=== PATIENT | male | born 1965 | race Caucasian/White ===

== ENCOUNTER 2018-10-09 15:44 | Emergency (ER) | payer MEDICAID ==
[~2018-10-09] VITALS: Ht 175.3 cm; Wt 79.5 kg
[2018-10-09] MEDS ORDERED: NAPR250T4 PO (15:53)
[2018-10-09] MEDS ORDERED: LITH8SOL6 PO (15:53)
[2018-10-09] MEDS ORDERED: FOLI0.4T4 PO (15:53)
[2018-10-09] MEDS ORDERED: METH2.5 PO (15:53)
[2018-10-09] MEDS ORDERED: TAMS0.4C32 PO (15:53)
[2018-10-09] MEDS ORDERED: VENL25TA47 PO (15:53)
[2018-10-09] MEDS ORDERED: PRED1 PO (15:53)
[2018-10-09] MEDS ORDERED: QUET25TA PO (15:53)
[2018-10-09] MEDS ORDERED: GABA-529 PO (16:01)
[2018-10-09] MEDS ORDERED: FOLI1 PO (16:01)
[2018-10-09] MEDS ORDERED: QUET200T PO (16:01)
[2018-10-09] MEDS ORDERED: LITH300C3 PO (16:01)
[2018-10-09] MEDS ORDERED: HYDR200T4 PO (16:01)
[2018-10-09 18:49] VITALS: BP 133/78
== END 2018-10-09 19:06 | disposition home or self-care (01) ==
LOC: EMS 15:46
DX: F10.239 Alcohol dependence with withdrawal, unspecified (principal); Y90.9 Presence of alcohol in blood, level not specified; F31.9 Bipolar disorder, unspecified; Z76.0 Encounter for issue of repeat prescription; F17.210 Nicotine dependence, cigarettes, uncomplicated; F41.9 Anxiety disorder, unspecified; K21.9 Gastro-esophageal reflux disease without esophagitis; Z79.899 Other long term (current) drug therapy
CPT/HCPCS: 99406

== ENCOUNTER 2018-10-24 10:24 | Emergency (ER) | payer MEDICAID ==
[~2018-10-24] VITALS: Ht 175.3 cm; Wt 77.3 kg
[~2018-10-24 10:24] MED LIST: FOLI1 PO; GABA-529 PO; HYDR200T4 PO; LITH300C3 PO; METH2.5 PO; NAPR250T4 PO; PRED1 PO; QUET200T PO; TAMS0.4C32 PO; VENL25TA47 PO
[2018-10-24 14:20] VITALS: BP 157/88
== END 2018-10-24 14:23 | disposition home or self-care (01) ==
LOC: EMS 10:24
DX: F41.9 Anxiety disorder, unspecified (principal); F31.9 Bipolar disorder, unspecified; K21.9 Gastro-esophageal reflux disease without esophagitis; F17.210 Nicotine dependence, cigarettes, uncomplicated; Z76.0 Encounter for issue of repeat prescription

== ENCOUNTER 2019-01-09 15:08 | Inpatient (IN) | payer MEDICAID ==
[~2019-01-09] VITALS: Ht 175.3 cm; Wt 66.9 kg
[2019-01-09] MEDS ORDERED: METH2.5T6 PO (18:18)
[2019-01-09] MEDS ORDERED: folic acid PO (18:18)
[2019-01-09] MEDS ORDERED: LITH300C3 PO (18:18)
[2019-01-09] MEDS ORDERED: Hydroxychloroquine PO (18:18)
[2019-01-09] MEDS ORDERED: Tamsulosin PO (18:18)
[2019-01-09] MEDS ORDERED: Prednisone PO (18:18)
[2019-01-09] MEDS ORDERED: QUET300T2 PO (18:18)
[2019-01-09] MEDS ORDERED: LORazepam 2 MG TABLET PO PRN (19:00)
[2019-01-09] MEDS ORDERED: HALOPERIDOL 5 MG TABLET PO PRN (19:00)
[2019-01-09 19:12] VITALS: BP 121/67
[2019-01-10 06:53] VITALS: BP 122/80
[2019-01-10 07:51] LABS: BASOPHILS % (AUTO) 0.5 % (0.0-2.0); EOSINOPHILS % (AUTO) 1.2 % (1.0-6.0); HEMATOCRIT 37.4 % (41-53); LYMPHOCYTES # (AUTO) 2.2 K/uL (1.0-4.8); LYMPHOCYTES % (AUTO) 25.6 % (22.0-44.0); MEAN CORPUSCULAR HEMOGLOBIN 31.8 pg (26.0-34.0); MEAN CORPUSCULAR HGB CONC 34.8 G/dL (31.0-37.0); MEAN CORPUSCULAR VOLUME 91 fL (80-100); MONOCYTES # (AUTO) 0.7 K/uL (0.1-1.0); MONOCYTES % (AUTO) 8.4 % (2.0-9.0); NEUTROPHILS # (AUTO) 5.6 K/uL (1.8-7.7); NEUTROPHILS % (AUTO) 64.3 % (40.0-70.0); PLATELET COUNT (AUTO) 263 K/uL (150-450); RED BLOOD CELL COUNT(AUTO) 4.09 MIL/uL (4.50-5.90); RED CELL DISTRIBUTION WIDTH 15.1 % (11.5-14.5)
[2019-01-10 08:00] LABS: LITHIUM < 0.20 mmol/L (0.60-1.20)
[2019-01-10 08:33] LABS: ALANINE AMINOTRANSFERASE 20 U/L (12-78); ALBUMIN 3.1 g/dL (3.4-5.0); ALKALINE PHOSPHATASE 88 U/L (46-116); ANION GAP 8 mmol/L (8-16); ASPARTATE AMINOTRANSFERASE 23 U/L (15-37); BILIRUBIN,TOTAL 0.6 mg/dL (0.1-1.0); CALCIUM, TOTAL 8.8 mg/dL (8.8-10.5); CARBON DIOXIDE 27 mmol/L (22-29); CHLORIDE 103 mmol/L (98-107); CHOL/HDL RATIO 4.2 (4.2-7.3); CHOLESTEROL 165 mg/dL (131-200); CREATININE 0.87 mg/dL (0.60-1.30); GLOMERULAR FILTR. RATE CALC > 60 mL/min (>60); GLUCOSE,RANDOM 90 mg/dL (70-110); HDL CHOLESTEROL 39 mg/dL (40-60); LDL CHOL (CALC.) 106 mg/dL (0-130); POTASSIUM 4.7 mmol/L (3.5-5.1); SODIUM SERUM 138 mmol/L (136-145); THYROID STIMULATING HORMONE 0.99 uIU/mL (0.36-3.74); TOTAL PROTEIN, SERUM 6.3 g/dL (6.4-8.2); TRIGLYCERIDES 100 mg/dL (15-150); UREA NITROGEN, BLOOD 11 mg/dL (7-18)
[2019-01-10 08:39] VITALS: BP 108/69
[2019-01-10 08:41] LABS: HEMOGLOBIN A1C 5.7 % (4.5-6.2)
[2019-01-10] MEDS ORDERED: LOPERAMIDE HCL 2 MG CAPSULE PO PRN (12:30)
[2019-01-10] MEDS ORDERED: MAG HYDROX/AL HYDROX/SIMETH ES 30 ML SUSPENSION UDCUP PO PRN (12:30)
[2019-01-10] MEDS ORDERED: ALBUTEROL SULFATE HFA 90 MCG/PUFF 8 GM INHALER IH PRN (12:30)
[2019-01-10] MEDS ORDERED: PETROLATUM,WHITE 71 GM JELLY TP PRN (12:30)
[2019-01-10] MEDS ORDERED: ACETAMINOPHEN 325 MG TABLET PO PRN (12:30)
[2019-01-10] MEDS ORDERED: GuaiFENesin/D-METHORPHAN [SUGAR-FREE] 200-20MG/10 ML SYRUP UDCUP PO PRN (12:30)
[2019-01-10] MEDS ORDERED: ONDANSETRON HCL 4 MG TABLET PO PRN (12:30)
[2019-01-10] MEDS ORDERED: CloNIDine HCL 0.1 MG TABLET PO PRN (12:30)
[2019-01-10] MEDS ORDERED: NICOTINE 14 MG/24 HOUR PATCH TD PRN (12:30)
[2019-01-10 17:29] VITALS: BP 112/66
[2019-01-10] MEDS: LITHIUM CARBONATE 600 MG CAPSULE PO SCH (17:32)
[2019-01-10] MEDS: QUEtiapine FUMARATE 300 MG TABLET PO SCH (20:05)
[2019-01-10] MEDS ORDERED: TAMSULOSIN HCL 0.4 MG CAPSULE PO SCH (21:00)
[2019-01-11 00:49] VITALS: BP 104/64
[2019-01-11 08:30] VITALS: BP_SYST 111
[2019-01-11] MEDS ORDERED: METHOTREXATE SODIUM 2.5 MG TABLET PO SCH (09:00)
[2019-01-11] MEDS: FOLIC ACID 1 MG TABLET PO SCH (09:13)
[2019-01-11] MEDS: LITHIUM CARBONATE 600 MG CAPSULE PO SCH ×2 (09:14→17:27)
[2019-01-11] MEDS: QUEtiapine FUMARATE 200 MG TABLET PO SCH (09:14)
[2019-01-11] MEDS: SERTRALINE HCL 50 MG TABLET PO SCH (09:14)
[2019-01-11] MEDS: METHOTREXATE SODIUM 2.5 MG TABLET PO SCH (09:15)
[2019-01-11] MEDS: HYDROXYCHLOROQUINE SULFATE 200 MG TABLET PO SCH (09:15)
[2019-01-11 16:36] VITALS: BP 103/61
[2019-01-11] MEDS: TAMSULOSIN HCL 0.4 MG CAPSULE PO SCH (20:17)
[2019-01-11] MEDS: QUEtiapine FUMARATE 300 MG TABLET PO SCH (20:17)
[2019-01-12 00:54] VITALS: BP 112/60
[2019-01-12 08:27] VITALS: BP 111/63
[2019-01-12] MEDS: QUEtiapine FUMARATE 200 MG TABLET PO SCH (09:17)
[2019-01-12] MEDS: HYDROXYCHLOROQUINE SULFATE 200 MG TABLET PO SCH (09:17)
[2019-01-12] MEDS: SERTRALINE HCL 50 MG TABLET PO SCH (09:17)
[2019-01-12] MEDS: LITHIUM CARBONATE 600 MG CAPSULE PO SCH ×2 (09:17→17:13)
[2019-01-12] MEDS: FOLIC ACID 1 MG TABLET PO SCH (09:17)
[2019-01-12 16:00] VITALS: BP 121/63
[2019-01-12] MEDS: TAMSULOSIN HCL 0.4 MG CAPSULE PO SCH (20:38)
[2019-01-12] MEDS: QUEtiapine FUMARATE 300 MG TABLET PO SCH (20:38)
[2019-01-13 00:55] VITALS: BP 113/71
[2019-01-13 08:16] VITALS: BP 120/64
[2019-01-13] MEDS: QUEtiapine FUMARATE 200 MG TABLET PO SCH (08:53)
[2019-01-13] MEDS: LITHIUM CARBONATE 600 MG CAPSULE PO SCH ×2 (08:54→16:53)
[2019-01-13] MEDS: HYDROXYCHLOROQUINE SULFATE 200 MG TABLET PO SCH (08:54)
[2019-01-13] MEDS: FOLIC ACID 1 MG TABLET PO SCH (08:54)
[2019-01-13] MEDS: SERTRALINE HCL 50 MG TABLET PO SCH (09:05)
[2019-01-13 16:35] VITALS: BP 115/66
[2019-01-13] MEDS: QUEtiapine FUMARATE 300 MG TABLET PO SCH (20:32)
[2019-01-13] MEDS: TAMSULOSIN HCL 0.4 MG CAPSULE PO SCH (20:33)
[2019-01-14 05:29] VITALS: BP 116/62
[2019-01-14 08:40] VITALS: BP 113/76
[2019-01-14] MEDS: LITHIUM CARBONATE 600 MG CAPSULE PO SCH ×2 (08:53→17:09)
[2019-01-14] MEDS: FOLIC ACID 1 MG TABLET PO SCH (08:56)
[2019-01-14] MEDS: QUEtiapine FUMARATE 200 MG TABLET PO SCH (08:56)
[2019-01-14] MEDS: HYDROXYCHLOROQUINE SULFATE 200 MG TABLET PO SCH (08:56)
[2019-01-14] MEDS ORDERED: SERTRALINE HCL 100 MG TABLET PO SCH (09:00)
[2019-01-14 12:20] VITALS: BP 118/65
[2019-01-14] MEDS: IBUPROFEN 400 MG TABLET PO PRN (12:22)
[2019-01-14 16:44] VITALS: BP 110/63
[2019-01-14] MEDS: QUEtiapine FUMARATE 300 MG TABLET PO SCH (21:23)
[2019-01-14] MEDS: TAMSULOSIN HCL 0.4 MG CAPSULE PO SCH (21:23)
[2019-01-15 01:44] VITALS: BP 118/70
[2019-01-15 08:29] VITALS: BP 108/76
[2019-01-15] MEDS ORDERED: SERTRALINE HCL 100 MG TABLET PO SCH (09:00)
[2019-01-15] MEDS: HYDROXYCHLOROQUINE SULFATE 200 MG TABLET PO SCH (09:33)
[2019-01-15] MEDS: LITHIUM CARBONATE 600 MG CAPSULE PO SCH ×2 (09:33→17:37)
[2019-01-15] MEDS: FOLIC ACID 1 MG TABLET PO SCH (09:33)
[2019-01-15] MEDS: QUEtiapine FUMARATE 200 MG TABLET PO SCH (09:33)
[2019-01-15 16:14] VITALS: BP 123/79
[2019-01-15] MEDS: TAMSULOSIN HCL 0.4 MG CAPSULE PO SCH (20:39)
[2019-01-15] MEDS: QUEtiapine FUMARATE 300 MG TABLET PO SCH (20:40)
[2019-01-16 01:04] VITALS: BP 120/81
[2019-01-16 08:54] VITALS: BP 110/74
[2019-01-16] MEDS: LITHIUM CARBONATE 600 MG CAPSULE PO SCH ×2 (10:05→16:07)
[2019-01-16] MEDS: HYDROXYCHLOROQUINE SULFATE 200 MG TABLET PO SCH (10:06)
[2019-01-16] MEDS: SERTRALINE HCL 100 MG TABLET PO SCH (10:06)
[2019-01-16] MEDS: QUEtiapine FUMARATE 200 MG TABLET PO SCH (10:06)
[2019-01-16] MEDS: FOLIC ACID 1 MG TABLET PO SCH (10:06)
[2019-01-16] MEDS: DOCUSATE SODIUM 100 MG CAPSULE PO PRN (16:07)
[2019-01-16 16:20] VITALS: BP 120/77
[2019-01-16 20:08] VITALS: BP 113/82
[2019-01-16] MEDS: QUEtiapine FUMARATE 300 MG TABLET PO SCH (20:10)
[2019-01-16] MEDS: TAMSULOSIN HCL 0.4 MG CAPSULE PO SCH (20:10)
[2019-01-16] MEDS: IBUPROFEN 400 MG TABLET PO PRN (20:10)
[2019-01-17 06:17] VITALS: BP 116/83
[2019-01-17] MEDS: HYDROXYCHLOROQUINE SULFATE 200 MG TABLET PO SCH (08:59)
[2019-01-17] MEDS: QUEtiapine FUMARATE 200 MG TABLET PO SCH (08:59)
[2019-01-17] MEDS: FOLIC ACID 1 MG TABLET PO SCH (09:00)
[2019-01-17] MEDS: DOCUSATE SODIUM 100 MG CAPSULE PO PRN ×2 (09:00→16:52)
[2019-01-17] MEDS ORDERED: SERTRALINE HCL 100 MG TABLET PO SCH (09:00)
[2019-01-17] MEDS: LITHIUM CARBONATE 600 MG CAPSULE PO SCH ×2 (09:00→16:48)
[2019-01-17] MEDS: SERTRALINE HCL 100 MG TABLET PO SCH (09:00)
[2019-01-17 09:05] VITALS: BP 116/68
[2019-01-17 16:08] VITALS: BP 113/75
[2019-01-17] MEDS: TAMSULOSIN HCL 0.4 MG CAPSULE PO SCH (20:28)
[2019-01-17] MEDS: QUEtiapine FUMARATE 300 MG TABLET PO SCH (20:28)
[2019-01-18 02:34] VITALS: BP 117/74
[2019-01-18] MEDS: QUEtiapine FUMARATE 200 MG TABLET PO SCH (08:40)
[2019-01-18] MEDS: SERTRALINE HCL 100 MG TABLET PO SCH (08:40)
[2019-01-18] MEDS: LITHIUM CARBONATE 600 MG CAPSULE PO SCH ×2 (08:40→16:10)
[2019-01-18] MEDS: FOLIC ACID 1 MG TABLET PO SCH (08:41)
[2019-01-18] MEDS: METHOTREXATE SODIUM 2.5 MG TABLET PO SCH (08:41)
[2019-01-18] MEDS: HYDROXYCHLOROQUINE SULFATE 200 MG TABLET PO SCH (08:41)
[2019-01-18 08:50] VITALS: BP 107/83
[2019-01-18] MEDS: IBUPROFEN 400 MG TABLET PO PRN ×2 (08:52→17:29)
[2019-01-18 08:54] VITALS: BP 107/83
[2019-01-18 16:36] VITALS: BP 103/60
[2019-01-18 17:28] VITALS: BP 126/78
[2019-01-18] MEDS: MAGNESIUM HYDROXIDE SUSPENSION 30 ML UDCUP PO PRN (17:32)
[2019-01-18] MEDS: QUEtiapine FUMARATE 300 MG TABLET PO SCH (20:10)
[2019-01-18] MEDS: TAMSULOSIN HCL 0.4 MG CAPSULE PO SCH (20:10)
[2019-01-19 00:58] VITALS: BP 108/70
[2019-01-19 08:23] VITALS: BP 118/78
[2019-01-19] MEDS: QUEtiapine FUMARATE 200 MG TABLET PO SCH (08:44)
[2019-01-19] MEDS: SERTRALINE HCL 100 MG TABLET PO SCH (08:44)
[2019-01-19] MEDS: FOLIC ACID 1 MG TABLET PO SCH (08:44)
[2019-01-19] MEDS: HYDROXYCHLOROQUINE SULFATE 200 MG TABLET PO SCH (08:44)
[2019-01-19] MEDS: LITHIUM CARBONATE 600 MG CAPSULE PO SCH ×2 (08:44→16:38)
[2019-01-19] MEDS: IBUPROFEN 400 MG TABLET PO PRN (08:45)
[2019-01-19 16:17] VITALS: BP 122/75
[2019-01-19] MEDS: MAGNESIUM HYDROXIDE SUSPENSION 30 ML UDCUP PO PRN (20:09)
[2019-01-19] MEDS: TAMSULOSIN HCL 0.4 MG CAPSULE PO SCH (20:09)
[2019-01-19] MEDS: QUEtiapine FUMARATE 300 MG TABLET PO SCH (20:10)
[2019-01-20 06:50] VITALS: BP 110/73
[2019-01-20 08:00] VITALS: BP 123/96
[2019-01-20 09:45] VITALS: BP 125/87
[2019-01-20] MEDS: HYDROXYCHLOROQUINE SULFATE 200 MG TABLET PO SCH (09:46)
[2019-01-20] MEDS: LITHIUM CARBONATE 600 MG CAPSULE PO SCH ×2 (09:46→16:40)
[2019-01-20] MEDS: QUEtiapine FUMARATE 200 MG TABLET PO SCH (09:47)
[2019-01-20] MEDS: FOLIC ACID 1 MG TABLET PO SCH (09:47)
[2019-01-20] MEDS: SERTRALINE HCL 100 MG TABLET PO SCH (09:47)
[2019-01-20 16:37] VITALS: BP 121/81
[2019-01-20] MEDS: TAMSULOSIN HCL 0.4 MG CAPSULE PO SCH (20:46)
[2019-01-20] MEDS: QUEtiapine FUMARATE 300 MG TABLET PO SCH (20:47)
[2019-01-21 06:46] VITALS: BP 119/74
[2019-01-21 08:25] VITALS: BP 107/70
[2019-01-21] MEDS: LITHIUM CARBONATE 600 MG CAPSULE PO SCH ×2 (08:51→16:46)
[2019-01-21] MEDS: FOLIC ACID 1 MG TABLET PO SCH (08:51)
[2019-01-21] MEDS: SERTRALINE HCL 100 MG TABLET PO SCH (08:51)
[2019-01-21] MEDS: HYDROXYCHLOROQUINE SULFATE 200 MG TABLET PO SCH (08:51)
[2019-01-21] MEDS: QUEtiapine FUMARATE 200 MG TABLET PO SCH (08:52)
[2019-01-21] MEDS: MAGNESIUM HYDROXIDE SUSPENSION 30 ML UDCUP PO PRN (08:59)
[2019-01-21 17:36] VITALS: BP 119/72
[2019-01-21] MEDS: QUEtiapine FUMARATE 300 MG TABLET PO SCH (20:25)
[2019-01-21] MEDS: TAMSULOSIN HCL 0.4 MG CAPSULE PO SCH (20:25)
[2019-01-22 05:34] VITALS: BP 121/73
[2019-01-22 08:29] VITALS: BP 102/72
[2019-01-22] MEDS: QUEtiapine FUMARATE 200 MG TABLET PO SCH (08:40)
[2019-01-22] MEDS: SERTRALINE HCL 100 MG TABLET PO SCH (08:40)
[2019-01-22] MEDS: LITHIUM CARBONATE 600 MG CAPSULE PO SCH (08:40)
[2019-01-22] MEDS: FOLIC ACID 1 MG TABLET PO SCH (08:40)
[2019-01-22] MEDS: HYDROXYCHLOROQUINE SULFATE 200 MG TABLET PO SCH (08:40)
[2019-01-22] MEDS ORDERED: SERT100T12 PO (08:47)
[2019-01-22] MEDS ORDERED: QUET200T PO (08:47)
== END 2019-01-22 12:15 | disposition home or self-care (01) | DRG 753 ==
LOC: B2S 18:56
PROVIDERS: ADMIT Psychiatry & Neurology Psychiatry; ATTEND Psychiatry & Neurology Psychiatry
DX: F31.4 Bipolar disorder, current episode depressed, severe, without psychotic features (principal); R45.851 Suicidal ideations; D64.9 Anemia, unspecified; F12.90 Cannabis use, unspecified, uncomplicated; F17.200 Nicotine dependence, unspecified, uncomplicated; F41.9 Anxiety disorder, unspecified; K21.9 Gastro-esophageal reflux disease without esophagitis; K59.00 Constipation, unspecified; M06.9 Rheumatoid arthritis, unspecified; N40.0 Benign prostatic hyperplasia without lower urinary tract symptoms; Z59.0 Homelessness; Z71.6 Tobacco abuse counseling; Z91.5 Personal history of self-harm; Z79.899 Other long term (current) drug therapy
CPT/HCPCS: 83036; 84439; 84443; 87081; J8610